=== PATIENT | male | born 1950 | race Caucasian/White ===

== ENCOUNTER 2016-11-05 09:21 | Emergency (ER) | payer OTHER ==
[~2016-11-05] VITALS: Ht 167.6 cm; Wt 62.9 kg
[2016-11-05 09:26] VITALS: TEMP 37; Ht 167.6 cm; Wt 62.9 kg
--- NOTE | 2016-11-05 10:03 | EMERGENCY ROOM VISIT NOTE ---
History Report prepared by Corina: Murray Ndiaye Under the Supervision of: Dr. Dayron Lui M.D. First contact with patient: 09:50 Chief Complaint: PENIS PAIN Stated Complaint: PENIS IRRIATATION Nursing Triage Summary: Penis pain. Pt states it downey/itches when he pees, there is swelling and redness per pt. x 4 days History of Present Illness The patient is a 66 year old male who presents to the Emergency Room with complaints of persistent penile irritation that started 4-5 days ago. Symptoms include swelling, redness, pain with pulling back the foreskin, and itching/ burning while urinating. He rates his discomfort a 5/10 in severity. The patient denies fevers, difficulty with bowel movements, or any additional associated symptoms. The patient mentions that he drinks alcohol frequently. Source of History: patient Onset: 4-5 days ago Position: other (Penis ) Symptom Intensity: 5/10 Timing: other (Persistent ) Modifying Factors (Worsening): other (None) Associated Symptoms: + urinary symptoms (Itching/burning while urinating), No fevers Note: Pain, swelling, and redness to the penis, pain with pulling back the foreskin Review of Systems All systems have been listed, reviewed, and are negative other than those previously mentioned. Please see Additional Medical History Sheet. Past Medical & Surgical Medical Problems: (1) No significant past medical history Surgical Problems: (1) No significant past surgical history Family History FH: diabetes mellitus Social History Smoking Status: Current Every Day Smoker Alcohol Use: heavy Marital Status: single Housing Status: lives with friends Occupation Status: retired Current/Historical Medications Scheduled Clotrimazole (Topical) (Lotrimin Af For Her), 1 APPL TOP BID Lisinopril (Prinivil), 40 MG PO DAILY Miscellaneous Medications Hydrochlorothiazide (Hctz), 40 MG PO Allergies Coded Allergies: No Known Allergies (Unverified , 11/05/16) Physical Exam Vital Signs Date Time Temp Pulse Resp B/P Pulse Ox O2 Delivery O2 Flow Rate FiO2 11/05/16 12:01 70 18 147/97 98 Room Air 11/05/16 10:44 66 18 124/77 96 Room Air 11/05/16 09:26 37.0 87 18 141/84 96 Room Air Physical Exam GENERAL: Patient awake, alert, oriented x 3. Patient follows commands. Patient does not appear toxic. Patient is adequately hydrated and well- nourished. SKIN: No erythema, pallor, cyanosis or rash HEENT: Normal head, pupils equal, reactive to light and accommodation. Oral cavity and posterior pharynx appear normal. Neck: Without adenopathy, no neck vein distention. LUNGS: Clear to auscultation. No wheezes, no rales, no rhonchi. HEART: No murmurs. No gallops. No rubs ABDOMEN: No masses, no rebound, no hepatomegaly or splenomegaly. EXTREMITIES: No signs of trauma. No pedal or pretibial edema. No calf or thigh tenderness. GENITALIA: Uncircumcised male. White-yovani discharge around end of penis, scrotum not involved. No tenderness or erythema. No inguinal adenopathy. NEUROLOGIC: Cranial nerves II-XII within normal limits. No gross motor sensory function deficits. Medical Decision & Procedures Laboratory Results 11/05/16 10:30 Red Blood Count 4.49, Mean Corpuscular Volume 97.8, Mean Corpuscular Hemoglobin 33.4, Mean Corpuscular Hemoglobin Concent 34.2, Mean Platelet Volume 10.2, Neutrophils (%) (Auto) 77.7, Lymphocytes (%) (Auto) 11.7, Monocytes (%) (Auto) 8.4, Eosinophils (%) (Auto) 1.6, Basophils (%) (Auto) 0.3, Neutrophils # (Auto) 7.36, Lymphocytes # (Auto) 1.11, Monocytes # (Auto) 0.80, Eosinophils # (Auto) 0.15, Basophils # (Auto) 0.03 11/05/16 10:30 Test 11/05/16 08:43 11/05/16 10:30 Urine Color DK YELLOW Urine Appearance CLEAR (CLEAR) Urine pH 6.0 (4.5-7.5) Urine Specific [place] 1.016 (1.000-1.030) Urine Protein NEG (NEG) Urine Glucose (UA) NEG (NEG) Urine Ketones NEG (NEG) Urine Occult Blood NEG (NEG) Urine Nitrite NEG (NEG) Urine Bilirubin NEG (NEG) Urine Urobilinogen NEG (NEG) Urine Leukocyte Esterase MODERATE (NEG) Urine WBC (Auto) 1-5 /hpf (0-5) Urine RBC (Auto) 0-4 /hpf (0-4) Urine Hyaline Casts (Auto) 1-5 /lpf (0-5) Urine Epithelial Cells (Auto) >30 /lpf (0-5) Urine Bacteria (Auto) NEG (NEG) White Blood Count 9.48 K/uL (4.8-10.8) Red Blood Count 4.49 M/uL (4.7-6.1) Hemoglobin 15.0 g/dL (14.0-18.0) Hematocrit 43.9 % (42-52) Mean Corpuscular Volume 97.8 fL (80-100) Mean Corpuscular Hemoglobin 33.4 pg (25-34) Mean Corpuscular Hemoglobin Concent 34.2 g/dl (32-36) Platelet Count 302 K/uL (130-400) Mean Platelet Volume 10.2 fL (7.4-10.4) Neutrophils (%) (Auto) 77.7 % Lymphocytes (%) (Auto) 11.7 % Monocytes (%) (Auto) 8.4 % Eosinophils (%) (Auto) 1.6 % Basophils (%) (Auto) 0.3 % Neutrophils # (Auto) 7.36 K/uL (1.4-6.5) Lymphocytes # (Auto) 1.11 K/uL (1.2-3.4) Monocytes # (Auto) 0.80 K/uL (0.11-0.59) Eosinophils # (Auto) 0.15 K/uL (0-0.5) Basophils # (Auto) 0.03 K/uL (0-0.2) RDW Standard Deviation 51.6 fL (36.4-46.3) RDW Coefficient of Variation 14.6 % (11.5-14.5) Immature Granulocyte % (Auto) 0.3 % Immature Granulocyte # (Auto) 0.03 K/uL (0.00-0.02) Anion Gap 7.0 mmol/L (3-11) Est Creatinine Clear Calc Drug Dose 78.9 ml/min Estimated GFR () 107.0 Estimated GFR (Non- 92.3 BUN/Creatinine Ratio 13.9 (10-20) Calcium Level 8.7 mg/dl (8.5-10.1) Laboratory results as stated above per my review. Medications Administered Medications (Trade) Dose Ordered Sig/Heidy Route Start Time Stop Time Status Last Admin Dose Admin Fluconazole (Diflucan Tab) 150 mg ONE ONCE PO 11/05/16 10:15 11/05/16 10:16 DC 11/05/16 10:42 150 MG ED Course 0954: Past medical records reviewed. The patient was evaluated in room A9B. A complete history and physical examination was performed. 1015: Ordered Fluconazole 150 mg PO. 1115: I discussed the patient's case with case management. They will work to set the patient up with a PCP. 1120: I updated the patient of the treatment plan. He is agreeable at this time. 1148: Upon reevaluation, the patient appeared to have improvement of his symptoms. I discussed today's findings with the patient. He verbalized agreement of the treatment plan. The patient was discharged home. Medical Decision Sulfa Differential diagnosis includes balanitis, balanoposthitis, paraphimosis, paraphimosis. Examination is consistent with yeast discharge in an uncircumcised male. Blood work was obtained to rule out possibilities of underlying diabetes or immunocompromise. Urinalysis was unremarkable. The patient was given Diflucan we treated with clotrimazole. The patient will need to follow up with a family physician or urologist. The patient does not currently have phimosis or paraphimosis. Impression Primary Impression: Candidal balanoposthitis Scribe Attestation The scribe's documentation has been prepared under my direction and personally reviewed by me in its entirety. I confirm that the note above accurately reflects all work, treatment, procedures, and medical decision making performed by me. Departure Information Dispostion Home / Self-Care Prescriptions Clotrimazole (Topical) (LOTRIMIN AF FOR HER) 1 % Cre 1 APPL TOP BID for 14 Days, #1 TUBE Prov: Dayron Lui M.D. 11/05/16 Forms HOME CARE DOCUMENTATION FORM, IMPORTANT VISIT INFORMATION, WORK / SCHOOL INSTRUCTIONS Patient Instructions Maite Hernandez [facility] Additional Instructions Apply clotrimazole cream twice a day to your penis. Follow-up with a family doctor within the next 2 weeks.
[2016-11-05] MEDS ORDERED: FLUCONAZOLE 100 MG TAB PO ONE (10:15)
[2016-11-05 10:41] LABS: BASO % 0.3 %; BASO ABS # 0.03 K/uL (0-0.2); COMPLETE YES; EOS % 1.6 %; HEMATOCRIT 43.9 % (42-52); IG% 0.3 %; LYMPH % 11.7 %; LYMPH ABS # 1.11 K/uL (1.2-3.4); MEAN CELL VOLUME 97.8 fL (80-100); MEAN CORPUSCULAR HEMOGLOBIN 33.4 pg (25-34); MEAN CORPUSCULAR HGB CONC 34.2 g/dl (32-36); MEAN PLATELET VOLUME 10.2 fL (7.4-10.4); MONO % 8.4 %; NEUT % 77.7 %; PLATELET COUNT 302 K/uL (130-400); RED BLOOD COUNT 4.49 M/uL (4.7-6.1); WHITE BLOOD COUNT 9.48 K/uL (4.8-10.8)
[2016-11-05 10:45] LABS: URINE APPEARANCE CLEAR (CLEAR); URINE BILIRUBIN NEG (NEG); URINE COLOR DK YELLOW; URINE EPITHELIAL CELL AUTO >30 /lpf (0-5); URINE NITRITE NEG (NEG); URINE SPECIFIC GRAVITY 1.016 (1.000-1.030); UROBILINOGEN NEG (NEG); ZZUR CULT IF INDIC CLEAN CATCH NO
[2016-11-05] MEDS ORDERED: LISI40TA PO (10:50)
[2016-11-05] MEDS ORDERED: HYDR50TA3 PO (10:50)
[2016-11-05 10:53] LABS: MANUAL MICROSCOPIC REQUIRED? NO; REVIEW REQ? NO
[2016-11-05 11:03] LABS: BUN/CREATININE RATIO 13.9 (10-20); CALCIUM 8.7 mg/dl (8.5-10.1); CREATININE 0.83 mg/dl (0.60-1.40); POTASSIUM 3.5 mmol/L (3.5-5.1)
[2016-11-05] MEDS ORDERED: CLOT1CRE TOP (11:08)
[2016-11-05 12:01] VITALS: BP 147/97; PULSE 70; O2SAT 98
== END 2016-11-05 12:02 | disposition home or self-care (01) ==
LOC: C.EDB 09:23 → C.EDA 12:02
DX: B37.42 Candidal balanitis (principal); Z83.3 Family history of diabetes mellitus; F17.210 Nicotine dependence, cigarettes, uncomplicated; Z79.899 Other long term (current) drug therapy